=== PATIENT | female | born 1995 | race Caucasian/White ===

== ENCOUNTER 2019-01-02 16:19 | Emergency (ER) | payer MEDICAID, OTHER ==
[~2019-01-02] VITALS: Ht 149.9 cm; Wt 50.8 kg
[2019-01-02 17:15] VITALS: BP 100/68
== END 2019-01-02 17:25 | disposition home or self-care (01) ==
LOC: ER 16:27
DX: J02.9 Acute pharyngitis, unspecified (principal); J06.9 Acute upper respiratory infection, unspecified

== ENCOUNTER 2020-08-09 14:52 | Emergency (ER) | payer MEDICAID ==
[~2020-08-09] VITALS: Ht 149.9 cm; Wt 52.2 kg
[2020-08-09] MEDS ORDERED: SODIUM CHLORIDE 0.9% 1,000 ML IVB ONE (15:15)
[2020-08-09 15:48] LABS: Basophils # (auto) 0 10 ^3/uL (0-0.2); Basophils % (auto) 0.2 % (0.0-2.0); Eosinophils # (auto) 0 10 ^3/uL (0-0.8); Eosinophils % (auto) 0.7 % (0.0-7.0); Hematocrit 22.3 % (36.0-46.0); Lymphocytes # (auto) 1.5 10 ^3/uL (0.4-5.4); Lymphocytes % (auto) 23.2 % (10.0-50.0); Mean Corpuscular Hemoglobin 33.9 pg (28.0-32.0); Mean Corpuscular Hgb Conc. 35.7 g/dL (32.0-36.0); Mean Corpuscular Volume 94.9 fL (80.0-100.0); Monocytes # (auto) 0.3 10 ^3/uL (0-1.3); Neutrophils # (auto) 4.6 10 ^3/uL (1.6-8.6); Neutrophils % (auto) 70.9 % (37.0-80.0); Red Blood Cells 2.35 10^6/uL (4.0-5.20); White Blood Cell 6.5 10^3/uL (4.4-10.8)
[2020-08-09 15:49] LABS: Albumin 3.6 g/dL (3.4-5.0); Calcium 8.5 mg/dL (8.5-10.1); Potassium 3.4 mmol/L (3.5-5.1)
[2020-08-09 15:54] LABS: BUN/Creatinine Ratio 9.6; Bilirubin, Total 0.2 mg/dL (0.2-1.0); Total Protein 6.3 g/dL (6.4-8.2)
[2020-08-09] MEDS ORDERED: PROMETHAZINE HCL 25 MG/ML 1ML IV ONE (17:30)
[2020-08-09] MEDS ORDERED: MORPHINE SULFATE INJECTION 2 MG/ML SYRG IV ONE (17:45)
[2020-08-09] MEDS ORDERED: LACT. RINGERS/OXYTOCIN 20UNITS 1,000 ML IV ONE ×2 (17:45)
[2020-08-09] MEDS ORDERED: OXYTOCIN 10UNIT/ML 1ML VIAL ONE (18:35)
[2020-08-09] MEDS ORDERED: ceFAZolin 1GM/50ML 50 ML IV ONE (18:35)
[2020-08-09 18:49] LABS: INR 1.03 (0.9-1.15); Partial Thromboplastin Time 25.5 sec (23.0-31.2)
[2020-08-09] MEDS ORDERED: METOCLOPRAMIDE HCL 5MG/ml INJ 2ml VIAL IV PRN (19:15)
[2020-08-09] MEDS ORDERED: HYDROmorphone HCL 2 MG/ML VL IV PRN (19:15)
[2020-08-09] MEDS ORDERED: MORPHINE SULFATE 4 MG/ML SYR/VIAL IV PRN (19:15)
[2020-08-09] MEDS ORDERED: RHO (D) IMMUNE GLOBULIN 300 MCG INJ IM PRN (19:15)
[2020-08-09 19:50] VITALS: BP 114/79
== END 2020-08-09 18:33 | disposition home or self-care (01) ==
LOC: ER 14:52
DX: O03.4 Incomplete spontaneous abortion without complication (principal); N93.9 Abnormal uterine and vaginal bleeding, unspecified; D50.0 Iron deficiency anemia secondary to blood loss (chronic); I10 Essential (primary) hypertension
CPT/HCPCS: 36415; 59812; 76801; 80053; 84702; 85025; 85610; 85730; 86850; 86900; 86901; 86920; 96361; 96374; 96375; 99291; J0690; J1170; J2270; J2550; J2590; J2765

== ENCOUNTER 2022-05-15 11:19 | Emergency (ER) | payer MEDICAID | END 2022-05-15 12:35 | disposition left against medical advice (07) | LOC: ER 11:19 | DX: R05.9 Cough, unspecified (principal); Z53.21 Procedure and treatment not carried out due to patient leaving prior to being seen by health care provider ==